=== PATIENT | male | born 1990 | race American Indian/Alaskan Native ===

== ENCOUNTER 2021-05-25 16:32 | Inpatient (IN) | payer MEDICARE ==
[2021-05-25] MEDS ORDERED: MORPHINE 4 MG/1 ML INJ IV ONE (20:32)
[2021-05-25] MEDS ORDERED: METOCLOPRAMIDE 10 MG/2 ML INJ IV ONE (20:32)
[2021-05-25] MEDS ORDERED: FAMOTIDINE 20 MG/2 ML INJ IV ONE (20:32)
[2021-05-25] MEDS ORDERED: diphenhydrAMINE 50 MG/ML VIAL IV ONE (20:32)
[2021-05-25] MEDS ORDERED: SODIUM CHLORIDE 0.9% 1000 ML 1,000 ML IV ONE (20:33)
[2021-05-25 20:58] LABS: Basophils # (Auto) 0.1 K/mm3 (0.0-0.1); Basophils % (Auto) 0.8 % (0.0-1.8); Eosinophils % (Auto) 0.3 % (0.0-4.3); Hematocrit 47.5 % (35.5-45.6); Hemoglobin 15.6 gm/dl (11.8-15.2); Lymphocytes # (Auto) 1.3 K/mm3 (1.2-5.4); Mean Corpuscular HGB Conc 33 % (32-34); Mean Corpuscular Volume 86 fl (84-94); Monocytes # (Auto) 0.5 K/mm3 (0.0-0.8); Monocytes % (Auto) 4.1 % (0.0-7.3); Platelet Count 317 K/mm3 (140-440); Red Blood Count 5.56 M/mm3 (3.65-5.03); Red Cell Distribution Width 13.6 % (13.2-15.2)
[2021-05-25 21:27] LABS: Alanine Aminotransferase 38 units/L (7-56); Albumin 5.2 g/dL (3.9-5); BUN/Creatinine Ratio 19; Blood Urea Nitrogen 17 mg/dL (9-20); Calcium 10.9 mg/dL (8.4-10.2); Hemolysis Index 18
--- NOTE | 2021-05-25 22:49 | Cat Scan Report ---
CT ABDOMEN AND PELVIS WITH CONTRAST INDICATION / CLINICAL INFORMATION: Pt complains of abdominal pain, possible S.B.O.. TECHNIQUE: Axial CT images were obtained through the abdomen and pelvis after 100 mL of opaque [address] scans at this location are performed using CT dose reduction for ALARA by means of automated exposure control. COMPARISON: None available. FINDINGS: LOWER CHEST: Linear bibasilar atelectasis. LIVER: Liver is diffusely hypodense characteristic of fatty infiltration. GALLBLADDER: Cholecystectomy. BILE DUCTS: Possible previous Whipple procedure with hepaticojejunostomy. Possible small amount of pn eumobilia related to hepaticojejunostomy. PANCREAS: Pancreatic head appears absent possibly due to previous Whipple procedure. Mild peripancrea tic inflammation around the body and tail mild dilatation of the pancreatic duct. SPLEEN: No significant abnormality. ADRENALS: No significant abnormality. RIGHT KIDNEY / URETER: No significant abnormality. LEFT KIDNEY / URETER: No significant abnormality. STOMACH / SMALL BOWEL: Distal gastrectomy with gastrojejunostomy. Fluid-filled nondilated small bowel . COLON: Right hemicolectomy with ileocolonic anastomosis. APPENDIX: Appendectomy. PERITONEUM: No free fluid. No free air. No fluid collection. LYMPH NODES: No significant adenopathy. AORTA / ARTERIES: No significant abnormality. IVC / VEINS: No significant abnormality. URINARY BLADDER: No significant abnormality. REPRODUCTIVE ORGANS: No significant abnormality. ADDITIONAL FINDINGS: None. SKELETAL SYSTEM: No significant abnormality. IMPRESSION: 1. Postsurgical findings related to possible Whipple procedure and right hemicolectomy. 2. Mild peripancreatic inflammation which can be seen in acute pancreatitis. 3. Fluid-filled, nondilated small bowel. No bowel obstruction. 4. Mild hepatic steatosis. Signer Name: Abbie Mendenhall MD Signed: 05/25/2021 10:44 PM Workstation Name: [id number]
[2021-05-25] MEDS ORDERED: HYDROmorphone 1 MG/1 ML INJ IV ONE (23:07)
[2021-05-25] MEDS ORDERED: ONDANSETRON 4 MG/2 ML INJ IV ONE (23:07)
[2021-05-25 23:13] LABS: Bilirubin,Urine NEG (Negative); Blood,Urine NEG (Negative); Color,Urine Straw (Yellow); Mucus,Urine FEW /HPF; Protein,Urine <15 mg/dL mg/dL (Negative); RBC,Urine < 1.0 /HPF (0.0-6.0); Urobilinogen,Urine < 2.0 mg/dL (<2.0); WBC,Urine < 1.0 /HPF (0.0-6.0)
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
[2021-05-26] MEDS ORDERED: ONDANSETRON 4 MG/2 ML INJ IV PRN (01:38)
[2021-05-26] MEDS ORDERED: ACETAMINOPHEN 325 MG TAB PO PRN ×2 (01:38→03:16)
[2021-05-26] MEDS ORDERED: HYDROmorphone 1 MG/1 ML INJ IV ONE (03:05)
[2021-05-26] MEDS ORDERED: MAGNESIUM HYDROXIDE (MOM) ORAL LIQD UDC PO PRN (03:16)
[2021-05-26] MEDS ORDERED: HYDROmorphone 1 MG/1 ML INJ IV PRN (03:16)
[2021-05-26] MEDS ORDERED: LORazepam 2 MG/ML VIAL IV PRN ×3 (03:26)
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
[2021-05-26] MEDS: ONDANSETRON 4 MG/2 ML INJ IV PRN (06:05)
[2021-05-26] MEDS: HYDROmorphone 1 MG/1 ML INJ IV PRN ×5 (06:08→23:21)
[2021-05-26] MEDS: SODIUM CHLORIDE 0.9% 1000 ML 1,000 ML IV SCH ×3 (11:01→21:26)
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
[2021-05-26] MEDS: HEPARIN 5,000 UNIT/1 ML VIAL SUB-Q SCH ×3 (16:10→21:29)
--- NOTE | 2021-05-26 16:14 | Event Note ---
Date: 05/26/21 Patient seen and examined in the emergency department. Pain well controlled. No longer having nausea/vomiting. Admits to drinking several beers daily. Continue IV hydration. Clear liquid diet started by gastroenterology. We will continue to monitor.
[2021-05-27] MEDS: SODIUM CHLORIDE 0.9% 1000 ML 1,000 ML IV SCH ×3 (02:36→16:09)
[2021-05-27] MEDS: HYDROmorphone 1 MG/1 ML INJ IV PRN ×4 (06:33→22:51)
[2021-05-27] MEDS: HEPARIN 5,000 UNIT/1 ML VIAL SUB-Q SCH ×3 (06:33→23:00)
[2021-05-27 07:22] LABS: Basophils % (Auto) 0.3 % (0.0-1.8); Eosinophils # (Auto) 0.2 K/mm3 (0.0-0.4); Eosinophils % (Auto) 2.7 % (0.0-4.3); Hematocrit 41.8 % (35.5-45.6); Hemoglobin 13.2 gm/dl (11.8-15.2); Lymphocytes # (Auto) 1.9 K/mm3 (1.2-5.4); Lymphocytes % (Auto) 23.2 % (13.4-35.0); Mean Corpuscular HGB Conc 32 % (32-34); Mean Corpuscular Volume 86 fl (84-94); Monocytes # (Auto) 0.9 K/mm3 (0.0-0.8); Monocytes % (Auto) 11.4 % (0.0-7.3); Platelet Count 240 K/mm3 (140-440); Red Blood Count 4.88 M/mm3 (3.65-5.03); Red Cell Distribution Width 13.3 % (13.2-15.2)
[2021-05-27 07:42] LABS: Alanine Aminotransferase 23 units/L (7-56); BUN/Creatinine Ratio 9; Blood Urea Nitrogen 9 mg/dL (9-20); Calcium 8.9 mg/dL (8.4-10.2); Hemolysis Index 3
[2021-05-27] MEDS: PANTOPRAZOLE 40 MG TAB PO SCH (09:00)
[2021-05-27] MEDS: MULTIVITAMINS ,THERAPEUTIC TAB PO SCH (09:00)
--- NOTE | 2021-05-27 15:36 | Progress Note ---
Assessment and Plan Assessment and plan: #Acute pancreatitis -Pancreatic inflammation on CT, elevated lipase -continue aggressive IV hydration -CLD, will advance as tolerated -PRN pain and nausea control -likely 2/2 to ETOH use -GI following, assistance appreciated #Volume depletion -likely 2/2 above problem -improvement in labs with IV hydration #Alcohol dependence -patient reports drinking 3 beers daily -counseled on importance of quitting or cutting back Disposition Plan: Continue medical management History Interval history: No acute events overnight. Patient tolerating clear liquid diet. Has no nausea or vomiting since yesterday. Pain well controlled. No complaints at this time. Hospitalist Physical - Physical exam Narrative exam: GENERAL: Well-developed well-nourished. Lying in bed in no acute distress. HEENT: Normocephalic. Atraumatic. CHEST/LUNGS: CTAB on room air HEART/CARDIOVASCULAR: RRR. No murmur, rubs or gallops appreciated. ABDOMEN: +BS. NT/ND. NEURO: No focal motor deficit. Follows all commands. MUSCULOSKELETAL: No joint effusion EXTREMITIES: No cyanosis, clubbing or edema. PSYCH: Cooperative. - Constitutional Vitals: Temp Pulse Resp BP Pulse Ox 98.6 F 81 20 105/65 91 05/27/21 08:36 05/27/21 08:36 05/27/21 08:36 05/27/21 08:36 05/27/21 08:36 General appearance: Present: no acute distress, well-nourished Results - Labs CBC & Chem 7: 05/27/21 06:38 05/28/21 05:00 Labs: Laboratory Last Values WBC 8.1 K/mm3 (4.5-11.0) 05/27/21 06:38 RBC 4.88 M/mm3 (3.65-5.03) 05/27/21 06:38 Hgb 13.2 gm/dl (11.8-15.2) 05/27/21 06:38 Hct 41.8 % (35.5-45.6) 05/27/21 06:38 MCV 86 fl (84-94) 05/27/21 06:38 MCH 27 pg (28-32) L 05/27/21 06:38 MCHC 32 % (32-34) 05/27/21 06:38 RDW 13.3 % (13.2-15.2) 05/27/21 06:38 Plt Count 240 K/mm3 (140-440) 05/27/21 06:38 Lymph % (Auto) 23.2 % (13.4-35.0) 05/27/21 06:38 [place] % (Auto) 11.4 % (0.0-7.3) H 05/27/21 06:38 Eos % (Auto) 2.7 % (0.0-4.3) 05/27/21 06:38 Baso % (Auto) 0.3 % (0.0-1.8) 05/27/21 06:38 Lymph # (Auto) 1.9 K/mm3 (1.2-5.4) 05/27/21 06:38 [place] # (Auto) 0.9 K/mm3 (0.0-0.8) H 05/27/21 06:38 Eos # (Auto) 0.2 K/mm3 (0.0-0.4) 05/27/21 06:38 Baso # (Auto) 0.0 K/mm3 (0.0-0.1) 05/27/21 06:38 Seg Neutrophils % 62.4 % (40.0-70.0) 05/27/21 06:38 Seg Neutrophils # 5.0 K/mm3 (1.8-7.7) 05/27/21 06:38 Sodium 139 mmol/L (137-145) 05/27/21 06:38 Potassium 3.9 mmol/L (3.6-5.0) 05/27/21 06:38 Chloride 104.6 mmol/L (98-107) 05/27/21 06:38 Carbon Dioxide 24 mmol/L (22-30) 05/27/21 06:38 Anion Gap 14 mmol/L 05/27/21 06:38 BUN 9 mg/dL (9-20) 05/27/21 06:38 Creatinine 1.0 mg/dL (0.8-1.3) 05/27/21 06:38 Estimated GFR > 60 ml/min 05/27/21 06:38 BUN/Creatinine Ratio 9 % 05/27/21 06:38 Glucose 95 mg/dL (75-100) 05/27/21 06:38 Calcium 8.9 mg/dL (8.4-10.2) D 05/27/21 06:38 Total Bilirubin 0.90 mg/dL (0.1-1.2) 05/27/21 06:38 AST 17 units/L (5-40) 05/27/21 06:38 ALT 23 units/L (7-56) 05/27/21 06:38 Alkaline Phosphatase 119 units/L (35-129) 05/27/21 06:38 Total Protein 7.0 g/dL (6.3-8.2) 05/27/21 06:38 Albumin 4.0 g/dL (3.9-5) 05/27/21 06:38 Albumin/Globulin Ratio 1.3 % 05/27/21 06:38 Lipase 106 units/L (13-60) H 05/27/21 06:38 Urine Color Straw (Yellow) 05/25/21 23:00 Urine Turbidity Clear (Clear) 05/25/21 23:00 Urine pH 5.0 (5.0-7.0) 05/25/21 23:00 Ur Specific [place] 1.044 (1.003-1.030) H 05/25/21 23:00 Urine Protein <15 mg/dl mg/dL (Negative) 05/25/21 23:00 Urine Glucose (UA) 150 mg/dL (Negative) 05/25/21 23:00 Urine Ketones Neg mg/dL (Negative) 05/25/21 23:00 Urine Blood Neg (Negative) 05/25/21 23:00 Urine Nitrite Neg (Negative) 05/25/21 23:00 Urine Bilirubin Neg (Negative) 05/25/21 23:00 Urine Urobilinogen < 2.0 mg/dL (<2.0) 05/25/21 23:00 Ur Leukocyte Esterase Neg (Negative) 05/25/21 23:00 Urine WBC (Auto) < 1.0 /HPF (0.0-6.0) 05/25/21 23:00 Urine RBC (Auto) < 1.0 /HPF (0.0-6.0) 05/25/21 23:00 U Epithel Cells (Auto) < 1.0 /HPF (0-13.0) 05/25/21 23:00 Urine Mucus Few /HPF 05/25/21 23:00 Cantu/IV: Voiding Method Toilet Active Medications - Current Medications Current Medications: Generic Name Dose Route Start Last Admin Trade Name Freq PRN Reason Stop Dose Admin Acetaminophen 650 mg 05/26/21 03:16 Acetaminophen 325 Mg Tab PO Q4H PRN Pain MILD(1-3)/Fever >100.5/DEJESUS Heparin Sodium (Porcine) 5,000 unit 05/26/21 14:00 05/27/21 06:33 Heparin 5,000 Unit/1 Ml Vial SUB-Q Not Given Q8HR CASEY Hydromorphone HCl 0.25 mg 05/26/21 03:16 05/26/21 09:37 Hydromorphone 1 Mg/1 Ml Inj IV 0.25 mg Q3H PRN Administration Pain, Moderate (4-6) Hydromorphone HCl 0.5 mg 05/26/21 03:16 05/27/21 09:29 Hydromorphone 1 Mg/1 Ml Inj IV 0.5 mg Q3H PRN Administration Pain , Severe (7-10) Sodium Chloride 1,000 mls @ 200 mls/hr 05/26/21 03:30 05/27/21 08:59 Nacl 0.9% 1000 Ml IV 200 mls/hr DIRECT CASEY Administration Lorazepam 2 mg 05/26/21 03:26 Lorazepam 2 Mg/Ml Vial IV Q1H PRN CIWA-Ar 8-15 Lorazepam 4 mg 05/26/21 03:26 Lorazepam 2 Mg/Ml Vial IV Q1H PRN CIWA-Ar 16-25 Lorazepam 4 mg 05/26/21 03:26 Lorazepam 2 Mg/Ml Vial IV Q15MIN PRN CIWA-Ar >25 Magnesium Hydroxide 30 ml 05/26/21 03:16 Magnesium Hydroxide (Mom) Oral Liqd Udc PO Q4H PRN Constipation Multivitamins 1 each 05/27/21 10:00 05/27/21 09:00 Multivitamins ,Therapeutic Tab PO 1 each QDAY CASEY Administration Ondansetron HCl 4 mg 05/26/21 03:16 05/26/21 06:05 Ondansetron 4 Mg/2 Ml Inj IV 4 mg Q8H PRN Administration Nausea And Vomiting Pantoprazole Sodium 40 mg 05/27/21 07:30 05/27/21 09:00 Pantoprazole 40 Mg Tab PO 40 mg QDAC CASEY Administration Sodium Chloride 10 ml 05/26/21 10:00 05/26/21 21:27 Sodium Chloride 0.9% 10 Ml Flush Syringe IV 10 ml BID CASEY Administration Sodium Chloride 10 ml 05/26/21 03:16 Sodium Chloride 0.9% 10 Ml Flush Syringe IV PRN PRN LINE FLUSH
--- NOTE | 2021-05-27 18:40 | Gastroenterology Progress Note ---
Assessment and Plan - Patient Problems (1) Acute pancreatitis Current Visit: Yes Status: Acute Plan to address problem: - Likely due to EtOH given the history. Post-surgical complication is possible, but would be rare this long after the procedure. - No signs of ductal abnormality (hepaticojej) or cancer on the imaging. - Symptoms improved, and will advance to regular diet since no N/V, necrosis, or fevers. - OK to discharge home; we will sign off; please call if needed. Subjective Date of service: 05/27/21 Principal diagnosis: Pancreatitis Interval history: The patient is tolerating a regular diet without N/V. Only has minimal abdominal pain. He has no fevers or blood in stools. Objective - Constitutional Vitals: Temp Pulse Resp BP Pulse Ox 98.6 F 96 H 20 122/76 93 05/27/21 15:50 05/27/21 15:50 05/27/21 15:50 05/27/21 15:50 05/27/21 15:50 General appearance: no acute distress - Respiratory Respiratory effort: normal Respiratory: bilateral: CTA - Cardiovascular Rhythm: regular Heart Sounds: Present: S1 & S2 - Gastrointestinal General gastrointestinal: Present: soft, non-tender, non-distended - Labs CBC & Chem 7: 05/27/21 06:38 05/27/21 06:38 Labs: Laboratory Results - last 24 hr 05/27/21 05/27/21 06:38 06:38 WBC 8.1 RBC 4.88 Hgb 13.2 Hct 41.8 MCV 86 MCH 27 L MCHC 32 RDW 13.3 Plt Count 240 Lymph % (Auto) 23.2 [place] % (Auto) 11.4 H Eos % (Auto) 2.7 Baso % (Auto) 0.3 Lymph # (Auto) 1.9 [place] # (Auto) 0.9 H Eos # (Auto) 0.2 Baso # (Auto) 0.0 Seg Neutrophils % 62.4 Seg Neutrophils # 5.0 Sodium 139 Potassium 3.9 Chloride 104.6 Carbon Dioxide 24 Anion Gap 14 BUN 9 Creatinine 1.0 Estimated GFR > 60 BUN/Creatinine Ratio 9 Glucose 95 Calcium 8.9 D Total Bilirubin 0.90 AST 17 ALT 23 Alkaline Phosphatase 119 Total Protein 7.0 Albumin 4.0 Albumin/Globulin Ratio 1.3 Lipase 106 H
[2021-05-27] MEDS: ONDANSETRON 4 MG/2 ML INJ IV PRN (23:05)
[2021-05-28] MEDS: HYDROmorphone 1 MG/1 ML INJ IV PRN ×2 (05:35→11:28)
[2021-05-28] MEDS: HEPARIN 5,000 UNIT/1 ML VIAL SUB-Q SCH (05:38)
[2021-05-28 06:34] LABS: BUN/Creatinine Ratio 11; Blood Urea Nitrogen 11 mg/dL (9-20); Calcium 9.3 mg/dL (8.4-10.2); Hemolysis Index 2
--- NOTE | 2021-05-28 08:48 | Discharge Summary ---
Providers - Providers Date of Admission: 05/26/21 09:16 Attending physician: ALBERTA SMILEY MD 05/26/21 03:26 Consult to Physician [CONS] Routine Comment: Consulting Provider: JORI JOHNSTON Physician Instructions: Reason For Exam: Abdominal pain, Acute pancreatitis Primary care physician: [facility] Hospitalization Condition: Stable Disposition: 30 STILL A PATIENT Exam - Constitutional Vitals: Temp Pulse Resp BP Pulse Ox 98.9 F 69 20 111/61 98 05/28/21 03:50 05/28/21 03:50 05/28/21 03:50 05/28/21 03:50 05/28/21 03:50 Plan Care Plan Goals: Please cut back on amount of alcohol you drink (beer included) or avoid it if possible. Follow up with your PCP within 1 week of discharge. Follow up with: PRIMARY CARE, [Primary Care Provider] - 7 Days Prescriptions: Multivitamin Tab [Multiple Vitamin TAB (Theragran)] 1 each PO QDAY 30 Days #30 tablet oxyCODONE /ACETAMINOPHEN [Percocet 5/325] 1 tab PO Q6HR PRN 3 Days #12 tablet PRN Reason: Pain Ondansetron HCl [Zofran] 4 mg PO Q8H PRN 4 Days #12 tab PRN Reason: Nausea And Vomiting
[2021-05-28 09:13] VITALS: BP 99/50
[2021-05-28] MEDS: PANTOPRAZOLE 40 MG TAB PO SCH (11:27)
[2021-05-28] MEDS: MULTIVITAMINS ,THERAPEUTIC TAB PO SCH (11:27)
== END 2021-05-28 13:00 | disposition home or self-care (01) | DRG 440 ==
LOC: ED 16:32 → 3A 05-26 03:16 → 4A 05-26 08:04 → OBSVTOIN 05-26 09:16
PROVIDERS: ADMIT Internal Medicine Geriatric Medicine; ATTEND Student in an Organized Health Care Education/Training Program
DX: K85.90 Acute pancreatitis without necrosis or infection, unspecified (principal); F10.20 Alcohol dependence, uncomplicated; Z90.49 Acquired absence of other specified parts of digestive tract; E86.9 Volume depletion, unspecified
CPT/HCPCS: 36415; 74177; 80048; 80053; 81001; 83690; 85025; G0378; J3490; Q0162; J1170; J1200; J1644; J2270; J2405; J2765; J7030; Q9967